=== PATIENT | female | born 1990 | race Two or more races ===

== ENCOUNTER 2017-08-30 22:18 | Emergency (ER) | payer SELFPAY ==
[~2017-08-30] VITALS: Ht 160 cm; Wt 70.0 kg
[2017-08-30 22:55] LABS: CLARITY URINE CLOUDY (CLEAR); COLOR URINE ORANGE (YELLOW); KETONES URINE NEGATIVE (NEGATIVE); LEUKOCYTE ESTERASE URINE 1+ (NEGATIVE); NITRITE URINE POSITIVE (NEGATIVE); OCCULT BLOOD URINE NEGATIVE (NEGATIVE); PROTEIN URINE TRACE (NEGATIVE); SPECIFIC GRAVITY URINE 1.035 (1.005-1.030)
[2017-08-31 00:22] VITALS: BP 98/59
== END 2017-08-31 00:30 | disposition home or self-care (01) ==
LOC: ER 22:18
DX: N39.0 Urinary tract infection, site not specified (principal)
CPT/HCPCS: 81003; 99283

== ENCOUNTER 2024-09-26 15:02 | Emergency (ER) | payer SELFPAY ==
[~2024-09-26] VITALS: Ht 157.5 cm; Wt 91.0 kg
[2024-09-26 15:08] VITALS: O2SAT 100
[2024-09-26] MEDS: IBUPROFEN 600MG TABLET PO ONE (16:13)
[2024-09-26] MEDS: LIDOCAINE 5% PATCH TOP SCH ×2 (16:13→16:30)
[2024-09-26] MEDS: CYCLOBENZAPRINE 10MG TABLET PO ONE (16:13)
[2024-09-26] MEDS ORDERED: IBUP-2028 MT (17:13)
[2024-09-26 17:25] VITALS: BP 132/75; PULSE 72; RESP 18; TEMP 36.9; O2SAT 100
== END 2024-09-26 17:26 | disposition home or self-care (01) ==
LOC: ER 15:02
DX: M54.41 Lumbago with sciatica, right side (principal)
CPT/HCPCS: 99284; 99285